=== PATIENT | female | born 1985 ===

== ENCOUNTER 2017-03-14 08:52 | Emergency (ER) | payer MEDICAID | END 2017-03-14 10:34 | disposition home or self-care (01) | LOC: H.EROB2 08:52 | DX: O47.03 False labor before 37 completed weeks of gestation, third trimester (principal); Z3A.34 34 weeks gestation of pregnancy ==

== ENCOUNTER 2017-04-13 12:39 | Emergency (ER) | payer MEDICAID ==
[2017-04-13 14:10] VITALS: BMI 28.4
[2017-04-13 14:35] LABS: RBC URINE 3 /hpf (0-3); URINE BACTERIA RARE (<OCC); URINE BILIRUBIN NEGATIVE (NEGATIVE); URINE BLOOD NEGATIVE (NEGATIVE); URINE COLOR STRAW (YELLOW); URINE GLUCOSE (UA) 150 mg/dL (Normal); URINE KETONE NEGATIVE (NEGATIVE); URINE LEUKOCYTE ESTERASE NEG Leu/uL (Negative); URINE PROTEIN NEGATIVE (NEGATIVE); URINE UROBILINOGEN 0.2-1.0 mg/dL (0.2-1.0); WBC URINE 1 /hpf (0-5)
--- NOTE | 2017-04-13 15:37 | OBHP ---
Datetime: 04/13/2017 14:54 IP Adm Impression: Term, intrauterine IP Chief Complaint Other: dizziness IP Admit Plan: Observation/Evaluation; Discharge home Admit Comment, IP Provider: Patient is a @ 38.4 wks previous comes in with dizzine ss and cramping, no vaginal bleeding, +FM, no dysuria, hypothyroid during the , no other ant epartum issues, no medical problems, no allergies, BP = 120s/70s-130s/-80s, mild CASTANEDA earlier patient t ook tylenol at home. Patient otherwise has no complaints VE=closed/thick/high YVD=233 mod becky, +accels, no decels TOCO = occasional ctxns A/P 1. Patient ruled out for labor. Patient occasionally yoel, not dilated. FHR = 135 mod becky, +accels, no decels. 2. Patient's BP stable, UA negative, no protein. Signs and symptoms of pre-eclampsia reviewed 3. Labor precautions and pre-eclampsia signs/symptoms reviewed. Patient to follow up in the clinic next wk. Patient desires , reviewed risks/benefits Pelvic Type - PN: Adequate Extremities - PN: Normal Abdomen - PN: Normal Back - PN: Normal Breast - PN: Normal Lungs - PN: Normal Heart - PN: Normal Thyroid - PN: Normal Neurologic - PN: Normal HEENT - PN: Normal General - PN: Normal FHR - Baseline A Provider: 135 Contraction Comments Provider: occasional EGA AdmitDate IP: 38.4 Vital Signs Provider: Reviewed; Within Normal Limits IP Chief Complaint: Uterine contractions; Other NICHD Variability Prov Fetus A: Moderate 6-25bpm NICHD Accel Fetus A IP Provider: [id number] NICHD Decel Fetus A IP Provider: None Dilatation, Provider: closed Effacement, Provider: thick Station, Provider: high Genitourinary Exam: Normal DTRs - PN: Normal Datetime: 03/14/2017 09:37 Membranes, Provider: Intact Comments, ACOG Physical Exam: VAginal exam: Barthoilin Cyst noticed at the 3 o clock position. Non t jennifer, no induration or erythema Speculum: yellowish colored discharge noted, most likely physiologic Cervix: Closed (Annotations: Data stored by CPN on behalf of user) Pool Provider: Negative FHR Category Provider Fetus A: Category I
--- NOTE | 2017-04-13 15:37 | OBDCSUM ---
Datetime: 04/13/2017 13:39 Discharged to, Provider: Home Follow up at, Provider: [facility] Disch Instr Activity: Normal activity Disch Instr Diet: Regular Discharge Instructions, Provider: Routine instructions given Discharge Time: 04/13/2017 14:54 Follow up in weeks, Provider: 04/19/17 Disch Referrals: None Contraception discussed, Prov: Yes Discharge Comment, Provider: Return to hospital if increased bleeding, pain, temp Discharge Diagnosis Prov Other: False labor
== END 2017-04-13 15:00 | disposition home or self-care (01) ==
LOC: H.EROB2 12:39
DX: O47.1 False labor at or after 37 completed weeks of gestation (principal); Z87.59 Personal history of other complications of pregnancy, childbirth and the puerperium; Z3A.38 38 weeks gestation of pregnancy

== ENCOUNTER 2017-04-18 12:17 | Emergency (ER) | payer MEDICAID ==
--- NOTE | 2017-04-18 14:41 | OBHP ---
Datetime: 04/18/2017 13:33 IP Adm Impression: Term, intrauterine IP Admit Plan: Observation/Evaluation Admit Comment, IP Provider: 32 y/o @ 39.2 weeks IUP presents w/ uterine contractions. The p atient reports contractions started 2 weeks ago but last night they became more painful, stronger, an d frequent. The patient reports that they come every 5-8 minutes, last 45 sec-1min, and range form 7 -9/10 in inensity. The patient reports positive movement and denies VB, LOF, headaches, chest pain, SOB, n/v/d, dysuria, and fevers. The patient takes PNVs and levothyroxine. Clinic: [facility] allergies: NKDA PMH: hypothyroidism and gastritis PSH: 2008, bilateral carpal tunnel release, bilateral tendinitis surgery of hands, appen dectomy OBHx: 2008 for heart rate droping due to cord wrapping around fetus SOC: denies smoking, alcohol, and drugs GBS: neg ABO-Rh: B+ antibody: neg RPR: neg HIV: neg HBsAg: neg Rubella: immune GC/C: neg PPD: Quantiferon Gold, neg O: CV: RRR Resp: CTA bl pelvic: 1 cm, posterior, intact membranes A: 32 y/o @ 39.2 weeks IUP presents w/ uterine contractions P: observe and re-evaluate continuous monitoring re-exam in 1 hour Sara Sanz MD Content Director ROS pt denies Fallon blurred vision +abdominal discomfort no vb constipation leakage of fluid. denies heat or cold intolerance musculoskeletal or criselda complaints The patient was seen with the resident and I agree with the note Pelvic Type - PN: Adequate Extremities - PN: Not Done Abdomen - PN: Normal Back - PN: Not Done Breast - PN: Not Done Lungs - PN: Normal Heart - PN: Normal Thyroid - PN: Not Done Neurologic - PN: Not Done HEENT - PN: Normal General - PN: Normal FHR - Baseline A Provider: 136 Membranes, Provider: Intact IP Hx Assessment: The History has been Reviewed and is Current EGA AdmitDate IP: 39.2 Vital Signs Provider: Reviewed; Within Normal Limits IP Chief Complaint: Uterine contractions NICHD Variability Prov Fetus A: Moderate 6-25bpm NICHD Accel Fetus A IP Provider: [id number] FHR Category Provider Fetus A: Category I NICHD Decel Fetus A IP Provider: None Dilatation, Provider: 1 Genitourinary Exam: Not Done DTRs - PN: Not Done
== END 2017-04-18 14:39 | disposition home or self-care (01) ==
LOC: H.EROB2 12:17
DX: O47.1 False labor at or after 37 completed weeks of gestation (principal); Z3A.39 39 weeks gestation of pregnancy; Z87.59 Personal history of other complications of pregnancy, childbirth and the puerperium

== ENCOUNTER 2017-04-18 17:54 | Inpatient (IN) | payer MEDICAID ==
[2017-04-18] MEDS: Lactated Ringer's 1,000 ML IV SCH ×2 (18:35→19:40)
[2017-04-18] MEDS ORDERED: ceFAZolin 2 GM in Sodium Chloride 0.9% 100 ML IVPB ONE (19:04)
[2017-04-18 19:09] VITALS: BP 137/85; PULSE 95; RESP 16; TEMP 98.6
[2017-04-18 19:11] LABS: BASO % 0.1 % (0.0-2.0); HEMATOCRIT 39.4 % (34.0-47.0); LYMPH # 1.9 K/uL (1.0-4.3); LYMPH % 10.6 % (20.0-40.0); MEAN CELL VOLUME 84.7 fl (81.0-99.0); MEAN CORPUSCULAR HEMOGLOBIN 28.1 pg (27.0-31.0); MEAN CORPUSCULAR HGB CONC 33.1 g/dL (33.0-37.0); MONO # 0.3 K/uL (0.0-0.8); MONO % 1.4 % (0.0-10.0); NEUT # 15.8 K/uL (1.8-7.0); NEUT % 87.9 % (50.0-75.0); RED CELL DISTRIBUTION WIDTH 14.2 % (11.5-14.5)
[2017-04-18] MEDS ORDERED: ePHEDrine 50 mg/ml Inj ONE (19:54)
[2017-04-18] MEDS ORDERED: Phenylephrine 10 mg/ml Inj ONE (19:54)
[2017-04-18] MEDS ORDERED: Morphine 1 mg/ml preservative-free Inj(Duramorph) ONE (19:55)
[2017-04-18] MEDS ORDERED: Oxycodone/Acetaminophen 5/325 mg Tab PO PRN (21:23)
[2017-04-18] MEDS ORDERED: Lactated Ringer's 1,000 ML IV SCH (21:30)
--- NOTE | 2017-04-19 00:33 | OP ---
PROCEDURE DATE: 04/18/2017 PREOPERATIVE DIAGNOSES: Intrauterine at 39 weeks, history of previous section in labor. The patient declined trial of labor. SURGEON: Bailey Dockery MD. PEOPLESOFT DEVELOPER: Dr. Chandni Heart. ANESTHESIA: Spinal administered by Dr. Romero. ESTIMATED BLOOD LOSS: 800 mL. FLUIDS: Sloan catheter put out approximately 250 mL of clear urine. The patient received 1500 mL of D5LR intraoperatively. OPERATIVE FINDINGS: Baby boy, vertex presentation, Apgars 9 and 9, weighing 3320 grams. Normal uter us, tubes, and ovaries were identified. COMMENTS: Dr. Chandni Heart was the assistant manager/embalmer in procedure. She was instrumental in the care of the patient. He helped create exposure, obtain hemostasis, and was helpful in delivering the infant. The procedure would not have been possible without her assistance. DESCRIPTION OF PROCEDURE: After informed consent was obtained, the patient was taken to the operatin g room where she was given spinal anesthesia. She was then prepped and draped in the usual sterile f ashion. A Pfannenstiel skin incision was then made with a scalpel and carried down to the underlying layer of fascia. The fascia was nicked in the midline and the fascial incision was then extended la terally with curved Stewart scissors. Superior aspect of the fascial incision was then grasped with [facility] her clamps, elevated up, and the rectus muscles were dissected off using both sharp and blunt dissect ion. Attention was then turned to the inferior aspect of the fascial incision. It was grasped with Aidan clamps, elevated up, and the rectus muscles were dissected off using both sharp and blunt diss ection. The rectus muscles were then in the midline. The peritoneum identified and entere d sharply with the Metzenbaum scissors. The peritoneal incision was then extended superiorly and inf eriorly with good visualization of the bladder. The bladder blade was inserted. The vesicouterine p eritoneum was identified and entered sharply with the Metzenbaum scissors. The incision was then ext ended laterally and the bladder flap was created digitally. The bladder blade was then reinserted an d a low transverse incision was then made on the uterus and it was extended laterally with the sherifag e scissors. The 's head was then delivered atraumatically. The nose and mouth were suctioned with DeLee suction trap. The cord was clamped and cut. The infant was handed off to waiting pediatr icians. The placenta was then removed manually. The uterus was exteriorized and cleared of all clot s and debris. The uterine incision was repaired with 0 Vicryl in a running lock fashion. The second layer of the same suture was used to obtain excellent hemostasis. The abdomen was then copiously ir rigated. The irrigant was removed with a suction device. Hemostasis was noted. The uterus was retu rned to the abdomen. The gutters were cleared of all clots and debris. Hemostasis was noted. The p eritoneum was then closed with 2-0 Vicryl in a running fashion. The muscle was reapproximated with 0 Vicryl in an interrupted fashion. The fascia was closed with 0 Vicryl in a running fashion and the skin was closed with 4-0 on a Yaw needle. All sponge, lap, needle, and instrument counts were jey ect x 2, and the patient was taken to recovery room in awake and stable condition. Teagan Dockery MD cc: [phone] TT: 04/19/2017 00:33:19 [place]
[2017-04-19] MEDS: Oxycodone/Acetaminophen 5/325 mg Tab PO PRN ×3 (00:47→20:18)
[2017-04-19 06:53] LABS: HEMATOCRIT 33.4 % (34.0-47.0); MEAN CELL VOLUME 85.5 fl (81.0-99.0); MEAN CORPUSCULAR HEMOGLOBIN 28.3 pg (27.0-31.0); MEAN CORPUSCULAR HGB CONC 33.1 g/dL (33.0-37.0); RED CELL DISTRIBUTION WIDTH 13.8 % (11.5-14.5); WHITE BLOOD COUNT 19.5 K/uL (4.8-10.8)
[2017-04-19] MEDS: Levothyroxine 50 MCG TAB PO SCH (07:45)
--- NOTE | 2017-04-19 10:56 | OBPPN ---
Datetime: 04/19/2017 05:31 PP Pain Prov: Within normal limits PP Nausea Prov: Denies PP Flatus Prov: Yes PP BM Prov: No PP Breasts Prov: Normal PP Heart Prov: Normal PP Lungs Prov: Normal PP Abdomen/Uterus Prov: Normal PP Lochia Prov: Normal PP Vulva/Perineum Prov: Normal PP CVA Tenderness Prov: Normal PP Extremities Prov: Normal PP C/S Incision Prov: Normal PP Progress Prov: Normal PP Comments Phys Exam Prov: abd: hypoactive BS, soft, mild tenderness to palpation. ND. Fundus firm at level of umbilicus. Incision: unable to visualize, covered in clean dressing reapplied by me at 2am, no signs of bleed ing/discharge. PP Impression Prov: Normal progression PP Plan Prov: Continue present management PP Progress Note Prov: pt seen and examined at bedside. No acute events overnight. Pt reports mild p elvic pain controlled w/ pain meds. No ambulation yet, SCDs attached. Breast/bottle feeding w/o dif ficulty. Lochia is less than menses in volume. Reports no bowel movement yet but is passing flatus . Still NPO but reports feeling hungry. Denies fevers, chills, n/v/d, CP/SOB, lightheadedness and kenzie f pain. A/P: 32 y/o s/p on 04/18/2017 @ 20:45 afebrile, tolerating pain w/ medication, doin g well on POD#1. -continue current management -DC Sloan @ 8:45am -advance diet as tolerated -d/c SCDs, ambulation with caution -f/u pCBC -Percocet 5/325 mg 1 tabs PO Q6h prn for mod/severe pain. -Ibuprofen 600 mg 1 tab Q6h PO prn for mild pain. -Sennosides for constipation -Encourage breast feeding. -Anticipate DC 04/21 Louis Jean MD PGY1 @ 5:34am [facility] ADDENDUM: pt seen _ examined by me. agree with above assessment and pln. benefitis of reinforced. wound care and hygiene reviewed. continue pnv. Vital Signs Provider PP: Reviewed; Within Normal Limits
[2017-04-20] MEDS: Oxycodone/Acetaminophen 5/325 mg Tab PO PRN ×4 (00:27→21:14)
[2017-04-20] MEDS: Levothyroxine 50 MCG TAB PO SCH (06:32)
--- NOTE | 2017-04-21 06:19 | OBPPN ---
Datetime: 04/20/2017 05:45 PP Pain Prov: Within normal limits PP Nausea Prov: Denies PP Flatus Prov: Yes PP BM Prov: Yes PP Breasts Prov: Normal PP Heart Prov: Normal PP Lungs Prov: Normal PP Abdomen/Uterus Prov: Normal PP Lochia Prov: Normal PP Vulva/Perineum Prov: Normal PP CVA Tenderness Prov: Normal PP Extremities Prov: Normal PP C/S Incision Prov: Normal PP Progress Prov: Normal PP Comments Phys Exam Prov: abd: +BS, soft, NT/ND, no guarding/rigidity. Fundus is firm below level of umbilicus Incision: clean, dry, intact PP Impression Prov: Normal progression PP Plan Prov: Continue present management PP Progress Note Prov: pt seen and examined at bedside. No acute events overnight. Pt reports mild p elvic pain controlled w/ pain meds. OOB/ambulating w/o dizziness Breast/bottle feeding w/o difficul ty. Lochia is less than menses in volume. +Flatus/+BM. Tolerating PO intake w/o difficulty. Denies fevers, chills, n/v/d, CP/SOB, lightheadedness and calf pain. A/P: 32 y/o s/p on 04/18/2017 @ 20:45 afebrile, tolerating pain w/ medication, doin g well on POD#2. -continue current management -Percocet 5/325 mg 1 tabs PO Q6h prn for mod/severe pain. -Ibuprofen 600 mg 1 tab Q6h PO prn for mild pain. -Sennosides for constipation -Encourage breast feeding. -Anticipate DC 04/21 Louis Jean MD PGY1 @ 5:46am OB Hospitalist note. On rounds at 22:00pm, I saw and examined this pt. Agree with PGY1 note MAHND O Vital Signs Provider PP: Reviewed; Within Normal Limits
[2017-04-21] MEDS: Levothyroxine 50 MCG TAB PO SCH (06:34)
[2017-04-21] MEDS: Oxycodone/Acetaminophen 5/325 mg Tab PO PRN (09:27)
--- NOTE | 2017-04-21 13:23 | OBDCSUM ---
Datetime: 04/21/2017 06:34 Discharged to, Provider: Home Follow up at, Provider: [facility] Disch Instr Activity: Normal activity; May be up to bathroom; May be up for meals; May Shower Disch Instr Diet: Regular Discharge Instructions, Provider: Routine instructions given Discharge Diagnosis, Provider: Term Delivered Discharge Time: 04/21/2017 11:00 Follow up in weeks, Provider: within 1 week Disch Referrals: None Contraception discussed, Prov: Yes Disch Activity Restrictions: No lifting; No sexual activity; Nothing in vagina - [place], tampon s, douche Contraception after Delivery: IUD
--- NOTE | 2017-04-21 13:23 | OBPPN ---
Datetime: 04/21/2017 06:31 PP Pain Prov: Within normal limits PP Nausea Prov: Denies PP Flatus Prov: Yes PP BM Prov: Yes PP Breasts Prov: Normal PP Heart Prov: Normal PP Lungs Prov: Normal PP Abdomen/Uterus Prov: Normal PP Lochia Prov: Normal PP Vulva/Perineum Prov: Normal PP CVA Tenderness Prov: Normal PP Extremities Prov: Normal PP C/S Incision Prov: Normal PP Progress Prov: Normal PP Comments Phys Exam Prov: abd: +BS, soft, NT/ND, no guarding/rigidity. Fundus firm below level of umbilicus. Incision: old dried blood over site, dry, intact, w/o discharge PP Impression Prov: Normal progression PP Plan Prov: Discharge PP Progress Note Prov: pt seen and examined at bedside. No acute events overnight. Pt reports mild p elvic pain controlled w/ pain meds. OOB/ambulating w/o dizziness Breast/bottle feeding w/o difficul ty. Lochia is less than menses in volume. +Flatus/+BM. Tolerating PO intake w/o difficulty. Denies fevers, chills, n/v/d, CP/SOB, lightheadedness and calf pain. A/P: 32 y/o s/p on 04/18/2017 @ 20:45 afebrile, tolerating pain w/ medication, doin g well on POD#3. -discharge home today -Percocet 5/325 mg 1 tabs PO Q6h prn for mod/severe pain. -Ibuprofen 600 mg 1 tab Q6h PO prn for mild pain. -Encourage breast feeding. -nothing per vagina -plans on using IUD for control -f/u with clinic within 1 week for wound check Louis Jean MD PGY1 @ 6:34am OB Hospitalist note. On rounds this morning, I saw and examined this pt. Agree with PGY1 note SACHIN NDO Vital Signs Provider PP: Reviewed; Within Normal Limits
== END 2017-04-21 12:15 | disposition home or self-care (01) | DRG 371 ==
LOC: H.EROB2 17:54 → H.L&D 18:48 → H.OB/GYN 23:30
PROVIDERS: ADMIT Obstetrics & Gynecology Gynecology; ATTEND Obstetrics & Gynecology Gynecology
PROC: 10D00Z1 Extraction of Products of Conception, Low, Open Approach (ICD-10-PCS; principal; 2017-04-18)
PROC: 4A1HXCZ Monitoring of Products of Conception, Cardiac Rate, External Approach (ICD-10-PCS; 2017-04-18)
DX: O34.211 Maternal care for low transverse scar from previous cesarean delivery (principal); K59.00 Constipation, unspecified; N85.8 Other specified noninflammatory disorders of uterus; Z3A.39 39 weeks gestation of pregnancy; Z37.0 Single live birth